=== PATIENT | female | born 1990 | race Caucasian/White ===

== ENCOUNTER 2017-04-19 07:01 | Inpatient (IN) | payer MEDICAID, OTHER ==
[2017-04-19] MEDS ORDERED: Sodium Chloride 0.9% 10 ML Syringe FLUSH PRN (08:12)
[2017-04-19] MEDS ORDERED: Oxytocin/Lactated Ringers 10 UNIT/1,000 ML BAG IV SCH ×2 (08:15)
[2017-04-19] MEDS: Lactated Ringers 1,000 ML IV SCH ×4 (08:32→15:49)
[2017-04-19] MEDS ORDERED: ePHEDrine 50 MG/ML SDV IVPUSH PRN (12:04)
[2017-04-19] MEDS ORDERED: Ondansetron 4 MG/2 ML SDV IVPUSH PRN (12:04)
[2017-04-19] MEDS ORDERED: fentaNYL 100 MCG/2 ML SDV EPIDUR PRN (12:04)
--- NOTE | 2017-04-19 12:04 | PCM.PREANE ---
Preanesthetic Assessment - Procedure Proposed Procedure: DARY - Anesthesia/Transfusion/Family Hx Anesthesia History: Prior Anesthesia Without Reaction Type of Anesthesia Reaction: Unknown Family History of Anesthesia Reaction: No Transfusion History: No Prior Transfusion(s) - Review of Systems General: No Symptoms Pulmonary: No Symptoms Cardiovascular: No Symptoms Gastrointestinal: Other (GERD with ) Neurological: No Symptoms Other: Reports: Easy Bruising - Physical Assessment NPO Status Date: 04/19/17 NPO Status Time: 08:00 O2 Sat by Pulse Oximetry: 99 Respiratory Rate: 18 Vital Signs: Last Vital Signs Temp 36.1 C 04/19/17 07:21 Pulse 111 H 04/19/17 07:21 Resp 18 04/19/17 07:21 BP 116/78 04/19/17 07:21 Pulse Ox 99 04/19/17 07:21 Height: 1.68 m Weight: 108.862 kg ASA Class: 2 Mental Status: Alert & Oriented x3 Dentition: Reports: Normal Dentition Thyro-Mental Finger Breadths: 3 Mouth Opening Finger Breadths: 3 ROM/Head Extension: Full Lungs: Clear to auscultation, Normal respiratory effort Cardiovascular: Regular Rate, Regular Rhythm, No Murmurs - Lab Values: Laboratory Last Values WBC 11.34 K/mm3 (3.98-10.04) H 04/19/17 08:34 RBC 3.84 M/mm3 (3.98-5.22) L 04/19/17 08:34 Hgb 12.9 gm/L (11.2-15.7) 04/19/17 08:34 Hct 37.7 % (34.1-44.9) 04/19/17 08:34 MCV 98.2 fl (79.4-94.8) H 04/19/17 08:34 MCH 33.6 pg (25.6-32.2) H 04/19/17 08:34 MCHC 34.2 g/dl (32.2-35.5) 04/19/17 08:34 RDW Std Deviation 46.0 fL (36.4-46.3) 04/19/17 08:34 Plt Count 205 K/mm3 (182-369) 04/19/17 08:34 MPV 9.8 fl (9.4-12.3) 04/19/17 08:34 Neut % (Auto) 77.8 % (34.0-71.1) H 04/19/17 08:34 Lymph % (Auto) 13.8 % (19.3-51.7) L 04/19/17 08:34 [place] % (Auto) 6.5 % (4.7-12.5) 04/19/17 08:34 Eos % (Auto) 1.0 (0.7-5.8) 04/19/17 08:34 Baso % (Auto) 0.2 % (0.1-1.2) 04/19/17 08:34 Neut # (Auto) 8.82 K/mm3 (1.56-6.13) H 04/19/17 08:34 Lymph # (Auto) 1.57 K/mm3 (1.18-3.74) 04/19/17 08:34 [place] # (Auto) 0.74 K/mm3 (0.24-0.36) H 04/19/17 08:34 Eos # (Auto) 0.11 K/mm3 (0.04-0.36) 04/19/17 08:34 Baso # (Auto) 0.02 K/mm3 (0.01-0.08) 04/19/17 08:34 All lab values noted and ok to proceed with planned procedure - Allergies Allergies/Adverse Reactions: Allergies Allergy/AdvReac Type Severity Reaction Status Date / Time No Known Allergies Allergy Verified 04/19/17 07:44 - Acknowledgements Anesthesia Type Planned: Epidural Pt an Appropriate Candidate for the Planned Anesthesia: Yes Alternatives and Risks of Anesthesia Discussed w Pt/Guardian: Yes Pt/Guardian Understands and Agrees with Anesthesia Plan: Yes PreAnesthesia Questionnaire - Past Health History Medical/Surgical History: Denies Medical/Surgical History [employer] History: Reports: - SUBSTANCE USE Smoking Status *Q: Former Smoker Second Hand Smoke Exposure: No Days Per Week of Alcohol Use: 0 Recreational Drug Use History: No - HOME MEDS Home Medications: Home Meds Prenat Vit Comb.10/Iron/Fa/Dha [Vitafol-OB + DHA] 1 each PO DAILY 03/25/16 [ History] - CURRENT (IN HOUSE) MEDS Current Meds: Current Medications Lactated Ringer's (Ringers, Lactated) 1,000 mls @ 100 mls/hr IV ASDIRECTED NINFA Last Admin: 04/19/17 11:50 Dose: 100 mls/hr Oxytocin/Lactated Ringer's (Pitocin In Lr 10 Units/1,000 Ml) 10 unit in 1,000 mls @ 500 mls/hr IV TITRATE NINFA PRN Reason: Protocol Oxytocin/Lactated Ringer's (Pitocin In Lr 10 Units/1,000 Ml) 10 unit in 1,000 mls @ 12 mls/hr IV TITRATE NINFA; 2 MUNITS/MIN PRN Reason: Protocol Last Titration: 04/19/17 11:10 Dose: 7 munits/min, 42 mls/hr Sodium Chloride (Saline Flush) 10 ml FLUSH ASDIRECTED PRN PRN Reason: Keep Vein Open
[2017-04-19] MEDS ORDERED: Bupivacaine/fentaNYL/NS 100 ML Bag EPIDUR SCH (12:15)
--- NOTE | 2017-04-19 16:35 | PCM.LDHP ---
L&D History of Present Illness - General Date of Service: 04/19/17 Admit Problem/Dx: Patient Status Order with Admit Dx/Problem 04/19/17 08:12 Patient Status [ADT] Routine Admission Diagnosis/Problem Admission Diagnosis/Problem Source of Information: Patient History Limitations: Reports: No Limitations - History of Present Illness Introduction:: 26 year old at 41 weeks here for induction of labor. No issues. PNC with myself complicated by late and sparse care. Pain Score: 7 - Related Data Allergies/Adverse Reactions: Allergies Allergy/AdvReac Type Severity Reaction Status Date / Time No Known Allergies Allergy Verified 04/19/17 07:44 Home Medications: Home Meds Prenat Vit Comb.10/Iron/Fa/Dha [Vitafol-OB + DHA] 1 each PO DAILY 03/25/16 [ History] Past Medical History - Past Health History Medical/Surgical History: Denies Medical/Surgical History STE[employer] History: Reports: Social & Family History - Family History Musculoskeletal: Reports: None - Tobacco Use Smoking Status *Q: Former Smoker Used Tobacco, but Quit: Yes Month Tobacco Last Used: 2013 Second Hand Smoke Exposure: No - Caffeine Use Caffeine Use: Reports: Coffee Other Caffeine Use: cup every other week - Alcohol Use Days Per Week of Alcohol Use: 0 - Recreational Drug Use Recreational Drug Use: No H&P Review of Systems - Review of Systems: Review Of Systems: See Below General: Reports: No Symptoms HEENT: Reports: No Symptoms Pulmonary: Reports: No Symptoms Cardiovascular: Reports: No Symptoms Gastrointestinal: Reports: No Symptoms Genitourinary: Reports: No Symptoms Musculoskeletal: Reports: No Symptoms Skin: Reports: No Symptoms Psychiatric: Reports: No Symptoms Neurological: Reports: No Symptoms Hematologic/Lymphatic: Reports: No Symptoms Immunologic: Reports: No Symptoms L&D Exam - Exam Exam: See Below - Vital Signs Vital Signs: Last Vital Signs Temp 36.1 C 04/19/17 07:21 Pulse 111 H 04/19/17 07:21 Resp 18 04/19/17 12:06 BP 116/78 04/19/17 07:21 Pulse Ox 99 04/19/17 12:06 Weight: 108.862 kg - OB Specific Fundal Height In cm: 40 Contraction Intensity: Irritability Movement: Active Heart Tones per Min: 145 Presentation: Vertex - Martin Score Martin Score Cervix Position: Midposition Martin Score Consistency: Soft Martin Score Effacement: 51-70% Martin Score Dilation: 3-4 cm Martin Score 's Station: -3 Martin Score Total: 7 - Exam General: Alert, Oriented HEENT: Conjunctiva Clear Neck: Supple, Trachea Midline Lungs: Clear to Auscultation, Normal Respiratory Effort Cardiovascular: Regular Rate, Regular Rhythm Abdomen: Normal Bowel Sounds, Soft Genitourinary: Normal external exam Back Exam: Normal Inspection Extremities: Normal Inspection Neurological: Cranial Nerves Intact, Reflexes Equal Bilateral Psychiatric: Alert, Normal Affect - Patient Data Lab Results last 24 hrs: Laboratory Results - last 24 hr 04/19/17 Range/Units 08:34 WBC 11.34 H (3.98-10.04) K/mm3 RBC 3.84 L (3.98-5.22) M/mm3 Hgb 12.9 (11.2-15.7) gm/L Hct 37.7 (34.1-44.9) % MCV 98.2 H (79.4-94.8) fl MCH 33.6 H (25.6-32.2) pg MCHC 34.2 (32.2-35.5) g/dl RDW Std Deviation 46.0 (36.4-46.3) fL Plt Count 205 (182-369) K/mm3 MPV 9.8 (9.4-12.3) fl Neut % (Auto) 77.8 H (34.0-71.1) % Lymph % (Auto) 13.8 L (19.3-51.7) % [place] % (Auto) 6.5 (4.7-12.5) % Eos % (Auto) 1.0 (0.7-5.8) Baso % (Auto) 0.2 (0.1-1.2) % Neut # (Auto) 8.82 H (1.56-6.13) K/mm3 Lymph # (Auto) 1.57 (1.18-3.74) K/mm3 [place] # (Auto) 0.74 H (0.24-0.36) K/mm3 Eos # (Auto) 0.11 (0.04-0.36) K/mm3 Baso # (Auto) 0.02 (0.01-0.08) K/mm3 Result Diagrams: 04/19/17 08:34 Problem List Initiated/Reviewed/Updated: Yes Orders Last 24hrs: Active Orders 24 hr Category Date Time Status Activity as Tolerated [RC] PFP Care 04/19/17 08:12 Active Communication Order [RC] ASDIRECTED Care 04/19/17 08:12 Active Heart Tones [RC] ASDIRECTED Care 04/19/17 08:12 Active Notify Provider [RC] PFP Care 04/19/17 08:12 Active Notify Provider [RC] PRN Care 04/19/17 08:12 Active Peripheral IV Care [RC] . DIRECTED Care 04/19/17 08:12 Active Vital Signs [RC] PER UNIT ROUTINE Care 04/19/17 08:12 Active Regular Diet [DIET] Diet 04/19/17 Breakfast Active Bupivacaine/fentaNYL/NS [fentaNYL/Bupivacaine/NS 2 MCG- Med 04/19/17 12:15 Active 0.125% 100 ML] 100 ml EPIDUR ASDIRECTED Lactated Ringers [Ringers, Lactated] 1,000 ml Med 04/19/17 08:15 Active IV ASDIRECTED Ondansetron [Zofran] Med 04/19/17 12:04 Active 4 mg IVPUSH ONETIME PRN Oxytocin/Lactated Ringers [Pitocin in LR 10 Units/1,000 Med 04/19/17 08:15 Active ML] 10 unit in 1,000 ml IV TITRATE Oxytocin/Lactated Ringers [Pitocin in LR 10 Units/1,000 Med 04/19/17 08:15 Active ML] 10 unit in 1,000 ml IV TITRATE Sodium Chloride 0.9% [Saline Flush] Med 04/19/17 08:12 Active 10 ml FLUSH ASDIRECTED PRN ePHEDrine [ePHEDrine Sulfate] Med 04/19/17 12:04 Active 5 mg IVPUSH ASDIRECTED PRN fentaNYL [Sublimaze] Med 04/19/17 12:04 Active 100 mcg EPIDUR Q3H PRN Electronic Heart Tones Ext w TOCO [WOMSER] Oth 04/19/17 08:12 Ordered Routine Electronic Heart Tones Internal [WOMSER] Per Unit Oth 04/19/17 08:12 Ordered Routine Peripheral IV Insertion Adult [OM.PC] Routine Oth 04/19/17 08:12 Ordered Resuscitation Status Routine Resus Stat 04/19/17 08:12 Ordered Medication Orders Ephedrine Sulfate (Ephedrine Sulfate) 5 mg IVPUSH ASDIRECTED PRN PRN Reason: Hypotension Fentanyl (Sublimaze) 100 mcg EPIDUR Q3H PRN PRN Reason: Pain Last Admin: 04/19/17 12:35 Dose: 100 mcg Fentanyl/Bupivacaine HCl (Fentanyl/Bupivacaine/Ns 2 Mcg-0.125% 100 Ml) 100 ml EPIDUR ASDIRECTED NINFA Last Admin: 04/19/17 12:36 Dose: 100 ml Lactated Ringer's (Ringers, Lactated) 1,000 mls @ 100 mls/hr IV ASDIRECTED NINFA Last Admin: 04/19/17 15:49 Dose: 100 mls/hr Infusion: 04/19/17 15:49 Dose: 100 mls/hr Admin: 04/19/17 12:30 Dose: 100 mls/hr Infusion: 04/19/17 12:30 Dose: 100 mls/hr Admin: 04/19/17 11:50 Dose: 100 mls/hr Infusion: 04/19/17 11:50 Dose: 100 mls/hr Admin: 04/19/17 08:32 Dose: 100 mls/hr Oxytocin/Lactated Ringer's (Pitocin In Lr 10 Units/1,000 Ml) 10 unit in 1,000 mls @ 500 mls/hr IV TITRATE NINFA PRN Reason: Protocol Oxytocin/Lactated Ringer's (Pitocin In Lr 10 Units/1,000 Ml) 10 unit in 1,000 mls @ 12 mls/hr IV TITRATE NINFA; 2 MUNITS/MIN PRN Reason: Protocol Last Titration: 04/19/17 14:27 Dose: 11 munits/min, 66 mls/hr Titration: 04/19/17 14:05 Dose: 9 munits/min, 54 mls/hr Titration: 04/19/17 13:35 Dose: 8 munits/min, 48 mls/hr Titration: 04/19/17 11:10 Dose: 7 munits/min, 42 mls/hr Titration: 04/19/17 10:00 Dose: 6 munits/min, 36 mls/hr Titration: 04/19/17 09:12 Dose: 4 munits/min, 24 mls/hr Admin: 04/19/17 08:33 Dose: 2 munits/min, 12 mls/hr Ondansetron HCl (Zofran) 4 mg IVPUSH ONETIME PRN PRN Reason: Nausea/Vomiting Sodium Chloride (Saline Flush) 10 ml FLUSH ASDIRECTED PRN PRN Reason: Keep Vein Open Assessment/Plan Comment:: Post term . Induction. Pitocin and AROM. Anticipate .
--- NOTE | 2017-04-19 16:36 | PCM.PNLD ---
Labor Progress Note - VS & Meds Vital Signs: Last Vital Signs Temp 36.1 C 04/19/17 07:21 Pulse 111 H 04/19/17 07:21 Resp 18 04/19/17 12:06 BP 116/78 04/19/17 07:21 Pulse Ox 99 04/19/17 12:06 Active Medications: Current Medications Ephedrine Sulfate (Ephedrine Sulfate) 5 mg IVPUSH ASDIRECTED PRN PRN Reason: Hypotension Fentanyl (Sublimaze) 100 mcg EPIDUR Q3H PRN PRN Reason: Pain Last Admin: 04/19/17 12:35 Dose: 100 mcg Fentanyl/Bupivacaine HCl (Fentanyl/Bupivacaine/Ns 2 Mcg-0.125% 100 Ml) 100 ml EPIDUR ASDIRECTED NINFA Last Admin: 04/19/17 12:36 Dose: 100 ml Lactated Ringer's (Ringers, Lactated) 1,000 mls @ 100 mls/hr IV ASDIRECTED NINFA Last Admin: 04/19/17 15:49 Dose: 100 mls/hr Oxytocin/Lactated Ringer's (Pitocin In Lr 10 Units/1,000 Ml) 10 unit in 1,000 mls @ 500 mls/hr IV TITRATE NINFA PRN Reason: Protocol Oxytocin/Lactated Ringer's (Pitocin In Lr 10 Units/1,000 Ml) 10 unit in 1,000 mls @ 12 mls/hr IV TITRATE NINFA; 2 MUNITS/MIN PRN Reason: Protocol Last Titration: 04/19/17 14:27 Dose: 11 munits/min, 66 mls/hr Ondansetron HCl (Zofran) 4 mg IVPUSH ONETIME PRN PRN Reason: Nausea/Vomiting Sodium Chloride (Saline Flush) 10 ml FLUSH ASDIRECTED PRN PRN Reason: Keep Vein Open - Uterine Contractions Uterine Monitoring Mode: External [place] Contraction Intensity: Moderate Uterine Resting Tone: Soft - Monitoring Monitor Mode: External Ultrasound Accelerations: Present, 15x15 Decelerations: Late (occasional lates) Strip Review: Category II - Vaginal Exam Cervical Position: Midposition - Labor Progress (Free Text) Labor Progress: Term induction. IUPC placed. Occasional lates but overall reassuring at this time. Continue pitocin. Anticpate .
[2017-04-19] MEDS ORDERED: Benzocaine/Menthol 20%-0.5% Spray 56 GM Canister TOP PRN (19:52)
[2017-04-19] MEDS: Ibuprofen 600 MG Tab PO PRN (22:49)
[2017-04-20] MEDS ORDERED: Witch Hazel Medicated Pads 100/Jar TOP PRN (00:52)
--- NOTE | 2017-04-20 06:24 | PCM.PNPP ---
- General Info Date of Service: 04/20/17 Functional Status: Reports: pain controlled - Review of Systems General: Reports: No Symptoms HEENT: Reports: no symptoms Pulmonary: Reports: no symptoms Cardiovascular: Reports: No Symptoms Gastrointestinal: Reports: No symptoms Genitourinary: Reports: no symptoms Musculoskeletal: Reports: no symptoms Skin: Reports: no symptoms Neurological: Reports: No Symptoms Psychiatric: Reports: no symptoms - General Info Date of Service: 04/20/17 - Patient Data Vital Signs - most recent: Last Vital Signs Temp 36.6 C 04/20/17 04:16 Pulse 84 04/20/17 04:16 Resp 15 04/20/17 04:16 BP 110/55 L 04/20/17 04:16 Pulse Ox 97 04/20/17 04:16 Weight - most recent: 108.862 kg I&O - last 24 hours: Intake & Output 04/19/17 04/19/17 04/20/17 14:59 22:59 06:59 Intake Total 2000 1700 1800 Output Total 1000 Balance 2000 700 1800 Lab Results - last 24 hrs: Laboratory Results - last 24 hr 04/19/17 04/19/17 Range/Units 06:34 08:34 WBC 11.34 H (3.98-10.04) K/mm3 RBC 3.84 L (3.98-5.22) M/mm3 Hgb 12.9 (11.2-15.7) gm/L Hct 37.7 (34.1-44.9) % MCV 98.2 H (79.4-94.8) fl MCH 33.6 H (25.6-32.2) pg MCHC 34.2 (32.2-35.5) g/dl RDW Std Deviation 46.0 (36.4-46.3) fL Plt Count 205 (182-369) K/mm3 MPV 9.8 (9.4-12.3) fl Neut % (Auto) 77.8 H (34.0-71.1) % Lymph % (Auto) 13.8 L (19.3-51.7) % [place] % (Auto) 6.5 (4.7-12.5) % Eos % (Auto) 1.0 (0.7-5.8) Baso % (Auto) 0.2 (0.1-1.2) % Neut # (Auto) 8.82 H (1.56-6.13) K/mm3 Lymph # (Auto) 1.57 (1.18-3.74) K/mm3 [place] # (Auto) 0.74 H (0.24-0.36) K/mm3 Eos # (Auto) 0.11 (0.04-0.36) K/mm3 Baso # (Auto) 0.02 (0.01-0.08) K/mm3 Blood Type A POSITIVE Gel Antibody Screen Negative Med Orders - Current: Current Medications Benzocaine/Menthol (Dermoplast Pain Relief [place]) 0 gm TOP ASDIRECTED PRN PRN Reason: Perineal Comfort Measure Last Admin: 04/19/17 22:50 Dose: 1 can Ibuprofen (Motrin) 600 mg PO Q6H PRN PRN Reason: Mild pain or fever Last Admin: 04/19/17 22:49 Dose: 600 mg Witch Marlena (Tucks) 1 pad TOP ASDIRECTED PRN PRN Reason: Pain Last Admin: 04/20/17 05:22 Dose: 1 box Discontinued Medications Ephedrine Sulfate (Ephedrine Sulfate) 5 mg IVPUSH ASDIRECTED PRN PRN Reason: Hypotension Fentanyl (Sublimaze) 100 mcg EPIDUR Q3H PRN PRN Reason: Pain Last Admin: 04/19/17 12:35 Dose: 100 mcg Fentanyl/Bupivacaine HCl (Fentanyl/Bupivacaine/Ns 2 Mcg-0.125% 100 Ml) 100 ml EPIDUR ASDIRECTED NINFA Last Admin: 04/19/17 12:36 Dose: 100 ml Lactated Ringer's (Ringers, Lactated) 1,000 mls @ 100 mls/hr IV ASDIRECTED NINFA Last Admin: 04/19/17 15:49 Dose: 100 mls/hr Oxytocin/Lactated Ringer's (Pitocin In Lr 10 Units/1,000 Ml) 10 unit in 1,000 mls @ 500 mls/hr IV TITRATE NINFA PRN Reason: Protocol Oxytocin/Lactated Ringer's (Pitocin In Lr 10 Units/1,000 Ml) 10 unit in 1,000 mls @ 12 mls/hr IV TITRATE NINFA; 2 MUNITS/MIN PRN Reason: Protocol Last Titration: 04/19/17 14:27 Dose: 11 munits/min, 66 mls/hr Ondansetron HCl (Zofran) 4 mg IVPUSH ONETIME PRN PRN Reason: Nausea/Vomiting Sodium Chloride (Saline Flush) 10 ml FLUSH ASDIRECTED PRN PRN Reason: Keep Vein Open - Interaction Support Person: Friend - Recovery Exam Fundal Tone: Firm Fundal Level: At Umbilicus Fundal Placement: Midline Lochia Amount: Small Lochia Color: Rubra/Red Episiotomy/Laceration: Approximated Bladder Status: Voiding - Exam General: alert, oriented HEENT: Pupils equal Neck: supple Lungs: Clear to auscultation, Normal respiratory effort Cardiovascular: Regular Rate, Regular Rhythm Abdomen: bowel sounds present, soft, no tenderness, no distension Extremities: no edema Skin: warm, dry, intact Wound/Incisions: healing well Neurological: no new focal deficit Psy/Mental Status: alert, normal affect, normal mood - Problem List Review Problem List Initiated/Reviewed/Updated: Yes - My Orders Last 24 Hours: My Active Orders 04/19/17 08:12 Heart Tones [RC] ASDIRECTED Notify Provider [RC] PFP Notify Provider [RC] PRN Peripheral IV Care [RC] . DIRECTED Vital Signs [RC] PER UNIT ROUTINE Resuscitation Status Routine 04/19/17 19:52 Activity as Tolerated [RC] PER UNIT ROUTINE Vital Signs [RC] 20,04,12 Benzocaine/Menthol [Dermoplast Pain Relief [place]] See Dose Instructions TOP ASDIRECTED PRN Ibuprofen [Motrin] 600 mg PO Q6H PRN Assess Lochia [WOMSER] Per Unit Routine Assess Uterine Involution [WOMSER] Per Unit Routine Breast Pump [WOMSER] Per Unit Routine Heat Therapy [OM.PC] PRN Medication Administration Instruction [OM.PC] Routine Perineal Care [OM.PC] Per Unit Routine Sitz Bath [OM.PC] Per Unit Routine 04/19/17 Breakfast Regular Diet [DIET] 04/20/17 00:52 Witch Marlena [Tucks] 1 pad TOP ASDIRECTED PRN 04/20/17 19:52 Heat Therapy [OM.PC] PRN - Assessment Assessment:: Term delivery. Doing well. - Plan Plan:: Discharge tomorrow. Routine care.
[2017-04-20] MEDS: Ibuprofen 600 MG Tab PO PRN ×2 (09:12→17:35)
[2017-04-20] MEDS: Docusate Sodium 100 MG Cap PO PRN ×2 (09:12→20:39)
--- NOTE | 2017-04-21 06:40 | PCM.DCSUM1 ---
Discharge Summary - Hospital Course HPI Initial Comments: Admitted for induction of labor Brief History: Doing well today. Ambulating, voiding, tolerating POs minimal pain. - Discharge Data Discharge Date: 04/21/17 Discharge Disposition: Home, Self-Care 01 Condition: Good - Patient Instructions Diet: Heart Healthy Diet Activity: No Strenuous Activities Activity, Other: pelvic rest Driving: May Drive Today Showering/Bathing: May Shower Notify Provider of: Fever, Increased Pain, Swelling and Redness, Drainage, Nausea and/or Vomiting Other/Special Instructions: call for any bleeding greater than one pad per hour - Discharge Plan Home Medications: Home Meds Prenat Vit Comb.10/Iron/Fa/Dha [Vitafol-OB + DHA] 1 each PO DAILY 03/25/16 [ History] Referrals: Lynn Campbell MD [Primary Care Provider] - (4-6 weeks. Also note when scheduling she wants a Mirena) - Discharge Summary/Plan Comment DC Time >30 min.: No - General Info Date of Service: 04/21/17 Functional Status: Reports: pain controlled - Review of Systems General: Reports: No Symptoms HEENT: Reports: no symptoms Pulmonary: Reports: no symptoms Cardiovascular: Reports: No Symptoms Gastrointestinal: Reports: No symptoms Genitourinary: Reports: no symptoms Musculoskeletal: Reports: no symptoms Skin: Reports: no symptoms Neurological: Reports: No Symptoms Psychiatric: Reports: no symptoms - Patient Data Vitals - Most Recent: Last Vital Signs Temp 36.6 C 04/21/17 03:58 Pulse 80 04/21/17 03:58 Resp 16 04/20/17 20:35 BP 115/41 L 04/21/17 03:58 Pulse Ox 100 04/21/17 03:58 Weight - Most Recent: 108.862 kg I&O - Last 24 hours: Intake & Output 04/20/17 04/20/17 04/21/17 14:59 22:59 06:59 Intake Total 390 Balance 390 Med Orders - Current: Current Medications Benzocaine/Menthol (Dermoplast Pain Relief [place]) 0 gm TOP ASDIRECTED PRN PRN Reason: Perineal Comfort Measure Last Admin: 04/19/17 22:50 Dose: 1 can Docusate Sodium (Colace) 100 mg PO BID PRN PRN Reason: Constipation Last Admin: 04/20/17 20:39 Dose: 100 mg Ibuprofen (Motrin) 600 mg PO Q6H PRN PRN Reason: Mild pain or fever Last Admin: 04/20/17 17:35 Dose: 600 mg Witch Marlena (Tucks) 1 pad TOP ASDIRECTED PRN PRN Reason: Pain Last Admin: 04/20/17 05:22 Dose: 1 box Discontinued Medications Ephedrine Sulfate (Ephedrine Sulfate) 5 mg IVPUSH ASDIRECTED PRN PRN Reason: Hypotension Fentanyl (Sublimaze) 100 mcg EPIDUR Q3H PRN PRN Reason: Pain Last Admin: 04/19/17 12:35 Dose: 100 mcg Fentanyl/Bupivacaine HCl (Fentanyl/Bupivacaine/Ns 2 Mcg-0.125% 100 Ml) 100 ml EPIDUR ASDIRECTED NINFA Last Admin: 04/19/17 12:36 Dose: 100 ml Lactated Ringer's (Ringers, Lactated) 1,000 mls @ 100 mls/hr IV ASDIRECTED NINFA Last Admin: 04/19/17 15:49 Dose: 100 mls/hr Oxytocin/Lactated Ringer's (Pitocin In Lr 10 Units/1,000 Ml) 10 unit in 1,000 mls @ 500 mls/hr IV TITRATE NINFA PRN Reason: Protocol Oxytocin/Lactated Ringer's (Pitocin In Lr 10 Units/1,000 Ml) 10 unit in 1,000 mls @ 12 mls/hr IV TITRATE NINFA; 2 MUNITS/MIN PRN Reason: Protocol Last Titration: 04/19/17 14:27 Dose: 11 munits/min, 66 mls/hr Ondansetron HCl (Zofran) 4 mg IVPUSH ONETIME PRN PRN Reason: Nausea/Vomiting Sodium Chloride (Saline Flush) 10 ml FLUSH ASDIRECTED PRN PRN Reason: Keep Vein Open - Exam General: Reports: alert, oriented HEENT: Reports: Pupils equal, Pupils reactive, EOMI, Mucous membr. moist/pink Neck: Reports: supple Lungs: Reports: Clear to auscultation, Normal respiratory effort Cardiovascular: Reports: Regular Rate, Regular Rhythm Abdomen: Reports: bowel sounds present, soft, no tenderness, no distension (Female) Exam: Normal External Exam, Normal Speculum Exam, Normal Bimanual Exam Back Exam: Reports: Normal Inspection, Full Range of Motion Extremities: Reports: no edema, normal pulses Skin: Reports: warm, dry, intact Wound/Incisions: Reports: healing well Neurological: Reports: no new focal deficit Psy/Mental Status: Reports: alert, normal affect, normal mood *Q Meaningful Use (DIS) - VTE *Q VTE Criteria *Q: - Stroke *Q Stroke Criteria *Q: - AMI *Q AMI Criteria *Q:
[2017-04-21] MEDS: Ibuprofen 600 MG Tab PO PRN (09:15)
[2017-04-21] MEDS: Docusate Sodium 100 MG Cap PO PRN (09:15)
[2017-04-21 10:54] VITALS: BP 100/53
== END 2017-04-21 10:35 | disposition home or self-care (01) | DRG 775 ==
LOC: UNDOADMOB 07:01 → JD.OB 07:01 → OBSVTOIN 18:55 → JD.OB 18:55
PROVIDERS: ADMIT Obstetrics & Gynecology; ATTEND Obstetrics & Gynecology
PROC: 10E0XZZ Delivery of Products of Conception, External Approach (ICD-10-PCS; principal; 2017-04-19)
PROC: 0KQM0ZZ Repair Perineum Muscle, Open Approach (ICD-10-PCS; 2017-04-19)
PROC: 3E033VJ Introduction of Other Hormone into Peripheral Vein, Percutaneous Approach (ICD-10-PCS; 2017-04-19)
PROC: 10907ZC Drainage of Amniotic Fluid, Therapeutic from Products of Conception, Via Natural or Artificial Opening (ICD-10-PCS; 2017-04-19)
PROC: 00HU33Z Insertion of Infusion Device into Spinal Canal, Percutaneous Approach (ICD-10-PCS; 2017-04-19)
PROC: 3E0R3CZ (ICD-10-PCS; 2017-04-19)
DX: O70.1 Second degree perineal laceration during delivery (principal); Z37.0 Single live birth; Z3A.41 41 weeks gestation of pregnancy; Z87.891 Personal history of nicotine dependence
CPT/HCPCS: 01967; 36415; 85025; 86850; 86900; 86901; A9270-GY; J2590; J3010; J7120